=== PATIENT | male | born 1950 | race Caucasian/White ===

== ENCOUNTER → 2017-03-13 | Outpatient (CLI) | payer OTHER ==
[~2017-03-13] MED LIST: ASPI325T39 PO
[2017-03-13 14:52] LABS: BASO % 0.5 %; BASO ABS # 0.03 K/uL (0-0.2); COMPLETE YES; EOS % 1.5 %; HEMATOCRIT 41.4 % (42-52); IG% 0.3 %; LYMPH % 22.2 %; LYMPH ABS # 1.37 K/uL (1.2-3.4); MEAN CELL VOLUME 87.7 fL (80-100); MEAN CORPUSCULAR HEMOGLOBIN 30.3 pg (25-34); MEAN CORPUSCULAR HGB CONC 34.5 g/dl (32-36); MEAN PLATELET VOLUME 11.2 fL (7.4-10.4); MONO % 6.8 %; NEUT % 68.7 %; PLATELET COUNT 216 K/uL (130-400); RED BLOOD COUNT 4.72 M/uL (4.7-6.1); WHITE BLOOD COUNT 6.18 K/uL (4.8-10.8)
[2017-03-13 14:54] LABS: URINE APPEARANCE CLEAR (CLEAR); URINE BILIRUBIN NEG (NEG); URINE COLOR YELLOW; URINE EPITHELIAL CELL AUTO 0-5 /lpf (0-5); URINE NITRITE NEG (NEG); URINE SPECIFIC GRAVITY 1.023 (1.000-1.030); UROBILINOGEN NEG (NEG)
[2017-03-13 14:55] LABS: MANUAL MICROSCOPIC REQUIRED? NO; REVIEW REQ? NO
[2017-03-13 15:02] LABS: BLOOD UREA NITROGEN 20 mg/dl (7-18); BUN/CREATININE RATIO 16.8 (10-20); CARBON DIOXIDE 24 mmol/L (21-32); CHLORIDE 108 mmol/L (98-107); CREATININE 1.22 mg/dl (0.60-1.40); GLUCOSE 91 mg/dl (70-99); POTASSIUM 4.3 mmol/L (3.5-5.1); SODIUM 139 mmol/L (136-145)
== END | disposition home or self-care (01) ==
LOC: C.LAB 13:45
PROVIDERS: ATTEND Orthopaedic Surgery Orthopaedic Surgery of the Spine
DX: M48.061 Spinal stenosis, lumbar region without neurogenic claudication (principal)

== ENCOUNTER 2017-04-10 09:47 | Inpatient (IN) | payer OTHER ==
[2017-01-29 11:08] VITALS: BMI 28.0
--- NOTE | 2017-01-29 11:34 | PAT Medication Instructions ---
Service Date Jan 29, 2017. Current Home Medication List Aspirin (Aspirin Ec), 975 MG PO prn Medication Instructions For Your Scheduled Surgery - Hold the following medications 7-10 days prior to surgery per surgeon's instructions: Aspirin (Aspirin Ec), 975 MG PO prn If you have any questions please call us at [phone] or [phone] or [phone]
--- NOTE | 2017-01-29 12:11 | DIAGNOSTIC IMAGING REPORT ---
TWO VIEW CHEST CLINICAL HISTORY: Preoperative examination. FINDINGS: PA and lateral chest radiographs are obtained. No prior studies are available for comparison at the time of dictation. The cardiomediastinal silhouette is unremarkable. The lungs and pleural spaces are clear. There is no pneumothorax. The bony thorax appears intact. IMPRESSION: No active disease in the chest. Electronically signed by: Unruly Drake M.D. 01/29/2017 12:09 PM Dictated Date/Time: 01/29/2017 12:08 PM
[2017-01-29 12:20] LABS: BASO % 0.3 %; BASO ABS # 0.02 K/uL (0-0.2); COMPLETE YES; EOS % 0.8 %; HEMATOCRIT 41.1 % (42-52); IG% 0.5 %; LYMPH % 17.5 %; LYMPH ABS # 1.04 K/uL (1.2-3.4); MEAN CELL VOLUME 88.6 fL (80-100); MEAN CORPUSCULAR HEMOGLOBIN 31.7 pg (25-34); MEAN CORPUSCULAR HGB CONC 35.8 g/dl (32-36); MONO % 6.4 %; NEUT % 74.5 %; PLATELET COUNT 213 K/uL (130-400); RED BLOOD COUNT 4.64 M/uL (4.7-6.1); WHITE BLOOD COUNT 5.94 K/uL (4.8-10.8)
[2017-01-29 12:24] LABS: URINE APPEARANCE CLEAR (CLEAR); URINE BILIRUBIN NEG (NEG); URINE COLOR YELLOW; URINE NITRITE NEG (NEG); URINE SPECIFIC GRAVITY 1.018 (1.000-1.030); UROBILINOGEN NEG (NEG); ZZUR CULT IF INDIC CLEAN CATCH NO
[2017-01-29 12:39] LABS: MANUAL MICROSCOPIC REQUIRED? NO; REVIEW REQ? NO
[2017-01-29 12:52] LABS: BUN/CREATININE RATIO 16.9 (10-20); CALCIUM 9.4 mg/dl (8.5-10.1); POTASSIUM 4.6 mmol/L (3.5-5.1)
[~2017-04-10] VITALS: Ht 175.3 cm; Wt 88.1 kg
[2017-04-10] VITALS (8 sets, daily range): BP systolic 130–156; BP diastolic 71–91; PULSE 72–98; TEMP 36.4–36.7; O2SAT 92–98; Ht 175.3 cm; Wt 88.1 kg
[~2017-04-10 09:47] MED LIST changes: +CEFAZOLIN 2000 MG/60 ML D5W IV SCH; +CEFAZOLIN 2000MG IV PUSH 10 ML IV SCH; +LACTATED RINGER'S 1000ML 1,000 ML IV SCH
[2017-04-10] MEDS ORDERED: MIDAZOLAM HCL 1 MG/ML 2ML VIAL ONE (11:18)
[2017-04-10] MEDS ORDERED: FENTANYL CITRATE INJ 50 MCG/1 ML 2 ML VIAL ONE ×3 (11:18→13:33)
--- NOTE | 2017-04-10 11:26 | History & Physical Bridge Note ---
H&P Re-Evaluation Bridge Note: I have examined the patient, reviewed the History & Physical and in the interval since the performance of the History & Physical I have noted the following changes of clinical significance: No changes noted
--- NOTE | 2017-04-10 11:27 | History and Physical ---
History & Physical Date Apr 10, 2017. Chief Complaint Back and leg pain History of Present Illness The patient is a 66 year old male with complaints of back and leg pain Allergies Coded Allergies: No Known Allergies (Unverified , 04/10/17) Home Medications Scheduled Aspirin (Aspirin Ec), 975 MG PO prn Physical Examination Skin: warm/dry, no rash Eyes: normal inspection, EOMI, sclerae normal ENT: normal ENT inspection, pharynx normal Head: normocephalic, atraumatic Neck: supple, no adenopathy, trachea midline Respiratory/Chest: lungs clear, normal breath sounds, no respiratory distress Cardiovascular: regular rate, rhythm, no edema, no murmur Abdomen / GI: normal bowel sounds, non tender Back: normal inspection Extremities: normal inspection, normal range of motion Neurologic/Psych: no motor/sensory deficits, alert, normal reflexes, oriented x 3 Diagnosis Lumbar spinal stenosis Plan of Treatment L4 5 decompression and fusion with possible L5-S1
[2017-04-10] MEDS ORDERED: BUPIVACAINE/EPINEPHRINE 0.5% MPF 1:200,000 30 ML VIAL ONE (11:45)
[2017-04-10] MEDS ORDERED: BACITRACIN 50000 UNIT VIAL ONE (11:46)
[2017-04-10] MEDS ORDERED: HYDROmorphone INJ 2 MG/ML SYR/VIAL ONE ×2 (12:26→13:55)
[2017-04-10] MEDS ORDERED: FLOSEAL HEMOSTATIC MATRIX 10ML TOP ONE (13:48)
[2017-04-10] MEDS ORDERED: ONDANSETRON INJ 2 MG/ML 2 ML VIAL ONE (13:54)
[2017-04-10] MEDS ORDERED: LIDOCAINE HCL 2% 2 ML VIAL (20MG/ML) ONE (13:54)
[2017-04-10] MEDS ORDERED: ROCURONIUM BROMIDE 10 MG/ML 5 ML VIAL IV ONE (13:54)
[2017-04-10] MEDS ORDERED: PROPOFOL IV EMULSION 10 MG/ML 20 ML VIAL IV ONE (13:54)
[2017-04-10] MEDS ORDERED: EpHEDrine SULFATE 50MG/5ML SYR ONE (13:55)
[2017-04-10] MEDS ORDERED: SODIUM CHLORIDE 0.9% 1000ML 1,000 ML IV SCH (13:55)
[2017-04-10] MEDS ORDERED: GLYCOPYRROLATE INJ 0.2 MG/ML VIAL ONE (13:55)
[2017-04-10] MEDS ORDERED: NEOSTIGMINE METHYLSULFATE 1 MG/ML 10ML VIAL ONE (13:55)
[2017-04-10] MEDS ORDERED: KETOROLAC TROMETHAMINE 30 MG/ML VIAL ONE (13:55)
[2017-04-10] MEDS ORDERED: FAMOTIDINE 20 MG TAB PO PRN (14:00)
[2017-04-10] MEDS ORDERED: NALOXONE HCL 0.4 MG/1 ML VIAL/CARP IV PRN (14:00)
[2017-04-10] MEDS ORDERED: ONDANSETRON INJ 2 MG/ML 2 ML VIAL IV PRN ×2 (14:00→15:15)
[2017-04-10] MEDS ORDERED: BISACODYL 10 MG SUPP PR PRN (14:00)
[2017-04-10] MEDS ORDERED: SOD PHOSPHATE/SOD BIPHOSPHATE ENEMA 132 ML BTL PR PRN (14:00)
[2017-04-10] MEDS ORDERED: ACETAMINOPHEN IV 100 ML IV PRN (14:00)
[2017-04-10] MEDS ORDERED: MAGNESIUM HYDROXIDE SUSP 30 ML UDC PO PRN (14:00)
[2017-04-10] MEDS ORDERED: LORAZEPAM 0.5 MG TAB PO PRN (14:00)
[2017-04-10] MEDS ORDERED: DO NOT ADMINISTER FLU VACCINE PRN ×3 (14:00)
[2017-04-10] MEDS ORDERED: METOCLOPRAMIDE HCL INJ 5 MG/ML 2 ML VIAL IV PRN (14:00)
[2017-04-10] MEDS ORDERED: hydrOXYzine HCL 25 MG TAB PO PRN (14:00)
[2017-04-10] MEDS ORDERED: ACETAMINOPHEN 500 MG TAB PO PRN (14:00)
[2017-04-10] MEDS ORDERED: DO NOT ADMINISTER PNEUMOCOCCAL VACCINE PRN ×2 (14:00)
[2017-04-10] MEDS ORDERED: ALUMINUM/MAGNESIUM SUSP 30 ML UDC PO PRN (14:00)
[2017-04-10] MEDS ORDERED: LORAZEPAM INJ 0.5 MG in SYRINGE 0.75 ML IV PRN (14:00)
[2017-04-10] MEDS ORDERED: PROMETHAZINE HCL INJ 12.5 MG in SODIUM CHLORIDE 0.9% 50ML 50 ML IV PRN (14:00)
--- NOTE | 2017-04-10 14:01 | [facility] Operative Report ---
Operative Report Operative Date Apr 10, 2017. Pre-Operative Diagnosis Lumbar spinal stenosis Post-Operative Diagnosis Same Procedure(s) Performed #1 lumbar decompression medial facetectomies foraminotomies L4 5 L5-S1. #2 posterior spinal fusion L4 5 L5-S1. #3 placement of posterior segmental instrumentation L4 5 L5-S1. #4 interbody fusion L5-S1. #5 placement peek cage 9 x 26 mm at L5-S1. #6 placement locally harvested morcellized autograft in the posterior lateral gutters. #7 placement infuse collagen sponge, mask graft the posterior gutters and ostial amp in the interbody space. Surgeon Dr. Isabel Well Logging Captain Mud Analysis Surgeon(s) Joselito Chen PA-C Estimated Blood Loss 125ml Findings Lumbar spinal stenosis Specimens none per surgeon Description of Procedure Patient was met with preoperatively case discussed all questions addressed. After informed consent was obtained patient was taken operative suite underwent intubation placed in a prone position the Jadwin table top Adam frame. All bony prominences were well-padded eyes inspected to ensure there is no external pressure placed upon them. This point the lumbar spines prepped draped in normal sterile fashion. Sharp dissection with the assistance of Bovie cautery was performed onto an exposing the lamina and transverse processes of L4-L5 and sacral alar bilaterally. Caudal cephalad fashion complete laminectomy of L5 L4 was performed addressing severe lateral recess stenosis and foraminal disease. Pedicle screws are then placed in L4-L5 and S1 levels bilaterally with assistance of fluoroscopy the purposes carson placed. Through a transverse foraminal approach on the right a complete discectomy of L5 5 S1 was performed and plate could subcortical bleeding bone and a 9 x 26 mm peek cage filled with ostial amp tapped in position. Brought to then locked and final position bilaterally. The transverse processes of L4-L5 and the sacral alar burred to subcortical bleeding bone. Infuse calm sponge mask graft locally harvested morcellized autograft was placed in the posterior lateral gutters. 15 round CORIE drain was inserted. Incision was then closed with 1 Vicryl in the fascia 2-0 Vicryl subcutaneous tediously 4 Monocryl for final skin closure Steri-Strips sterile dressings placed. Patient we can take PACU stable condition. Please note Fran record was present at the entire procedure involved in patient positioning complex portions of the surgery and final skin closure. I attest to the content of the Intraoperative Record and any orders documented therein. Any exceptions are noted below.
--- NOTE | 2017-04-10 14:08 | DIAGNOSTIC IMAGING REPORT ---
LUMBAR SPINE, INTRAOPERATIVE FLUOROSCOPY HISTORY: L4 S1 decompression fusion. FLUOROSCOPY TIME: 18 seconds. FINDINGS: Intraoperative fluoroscopy was provided for the lumbar spine. 2 fluoroscopic spot images were obtained. Posterior decompression fusion at L4-S1 with pedicle screws and rods. The hardware appears intact. IMPRESSION: Fluoroscopy provided for a L4-S1 posterior decompression and fusion. Electronically signed by: Eddie Marshall M.D. 04/10/2017 2:06 PM Dictated Date/Time: 04/10/2017 2:06 PM
[2017-04-10] MEDS: HYDROmorphone HCL 0.5MG/ML 50 ML CASSETTE IV PRN ×3 (14:33→18:52)
--- NOTE | 2017-04-10 15:06 | Anesthesiology Progress Note ---
Anesthesia Post Op Note Date & Time Apr 10, 2017 at 15:06 Vital Signs Pain Intensity: 0 Vital Signs Past 12 Hours Date Time Temp Pulse Resp B/P (MAP) Pulse Ox O2 Delivery O2 Flow Rate FiO2 04/10/17 15:05 36.1 85 18 134/77 97 Nasal Cannula 4 04/10/17 14:55 36.1 85 18 125/79 96 Nasal Cannula 4 04/10/17 14:45 84 18 131/81 96 Nasal Cannula 4 04/10/17 14:35 85 18 130/82 96 Oxymask 10 04/10/17 14:25 93 20 139/83 98 Oxymask 10 04/10/17 14:18 36.3 93 14 144/88 98 Oxymask 10 04/10/17 10:13 36.4 72 18 156/91 97 Room Air Notes Mental Status: alert / awake / arousable, participated in evaluation Pt Amnestic to Procedure: Yes Nausea / Vomiting: adequately controlled Pain: adequately controlled Airway Patency, RR, SpO2: stable & adequate BP & HR: stable & adequate Hydration State: stable & adequate Anesthetic Complications: no major complications apparent
[2017-04-10] MEDS ORDERED: HYDROmorphone INJ 2 MG/ML SYR/VIAL IV PRN (15:15)
[2017-04-10] MEDS ORDERED: ATROPINE SULFATE 0.1 MG/ML 5ML SYR IV PRN (15:15)
[2017-04-10] MEDS: LACTATED RINGER'S 1000ML 1,000 ML IV SCH ×2 (15:30→18:57)
[2017-04-10] MEDS ORDERED: DEXAMETHASONE INJ 6 MG in SYRINGE 0 ML IV SCH (16:00)
[2017-04-10] MEDS: DOCUSATE SODIUM/SENNA 50/8.6MG TAB PO SCH (20:16)
[2017-04-10] MEDS: CEFAZOLIN IV 2,000 MG in SYRINGE 0 ML IV SCH (20:16)
[2017-04-10] MEDS: DEXAMETHASONE INJ 6 MG in SYRINGE 0 ML IV SCH (21:01)
[2017-04-11] MEDS: LACTATED RINGER'S 1000ML 1,000 ML IV SCH (01:15)
[2017-04-11 03:05] VITALS: BP 138/73; PULSE 90; TEMP 36.6; O2SAT 94
[2017-04-11] MEDS: CEFAZOLIN IV 2,000 MG in SYRINGE 0 ML IV SCH (03:16)
[2017-04-11] MEDS: DEXAMETHASONE INJ 6 MG in SYRINGE 0 ML IV SCH ×2 (03:21→12:43)
[2017-04-11] MEDS ORDERED: NURSING DECISION MEDICATION ORDER SCH (06:00)
[2017-04-11] MEDS ORDERED: HYDROmorphone INJ 0.5 MG/0.5 ML SYR IV PRN (06:00)
[2017-04-11] MEDS ORDERED: OXYCODONE HCL IR 5 MG TAB (IMMEDIATE RELEASE) PO PRN (06:00)
[2017-04-11] MEDS ORDERED: DC PCA ONE (06:00)
[2017-04-11] MEDS ORDERED: NALOXONE HCL 0.4 MG/1 ML VIAL/CARP IV PRN (06:00)
[2017-04-11 06:32] LABS: COMPLETE YES; HEMATOCRIT 35.4 % (42-52); IG% 0.3 %; LYMPH % 3.6 %; LYMPH ABS # 0.54 K/uL (1.2-3.4); MEAN CELL VOLUME 89.6 fL (80-100); MEAN CORPUSCULAR HEMOGLOBIN 30.6 pg (25-34); MEAN CORPUSCULAR HGB CONC 34.2 g/dl (32-36); MEAN PLATELET VOLUME 11.1 fL (7.4-10.4); MONO % 3.5 %; NEUT % 92.6 %; PLATELET COUNT 197 K/uL (130-400); RED BLOOD COUNT 3.95 M/uL (4.7-6.1); WHITE BLOOD COUNT 15.07 K/uL (4.8-10.8)
[2017-04-11 07:00] VITALS: BP 125/71; PULSE 76; TEMP 36.8; O2SAT 94
[2017-04-11 07:07] LABS: BUN/CREATININE RATIO 18.2 (10-20); CALCIUM 8.9 mg/dl (8.5-10.1); CREATININE 1.23 mg/dl (0.60-1.40); POTASSIUM 4.2 mmol/L (3.5-5.1)
[2017-04-11] MEDS ORDERED: RXC5 PO (09:35)
--- NOTE | 2017-04-11 09:35 | Discharge Instructions ---
Discharge Instructions Date of Service Apr 11, 2017. Admission Reason for Admission: Lumbar Spinal Stenosis Discharge Discharge Diagnosis / Problem: lumbar stenosis Discharge Goals Goal(s): Improve function Activity Recommendations Activity Limitations: per Instructions/Follow-up section . Instructions / Follow-Up Instructions / Follow-Up ACTIVITY RECOMMENDATIONS: SELF CARE INSTRUCTIONS AFTER THORACIC/LUMBAR FUSIONS 1. You may walk to your tolerance. It is good exercise for your legs and back. Expect some back and intermittent leg aches and pains. 2. You may perform "counter-top" level activities (make a sandwich, aubrey with a project, etc.). 3. No bending or lifting of more than 10 pounds or back twisting of any nature (roll like a log when turning in bed). 4. You may ride in a car for 20-30 minutes at a time. No driving until after your first visit with your doctor. 5. Frequent changes of position and restricting sitting to 30 minutes at a time will help limit the amount of back spasms and stiffness you may experience. 6. You may discontinue the use of ambulatory aids (cane, crutches, etc.) once your strength and confidence allow. 7. You may booking officer the shower and let water strike your incision when you arrive home at least once daily. Do not take a tub bath, sit in a hot tub or go into a swimming pool until after your first recheck in the office. SPECIAL CARE INSTRUCTIONS: VERY IMPORTANT TO READ AND REVIEW A. Your surgical incision has been closed with a cosmetic suture under the skin that will dissolve in about 6 weeks. In 14 days, you can use a pair of clean scissors and cut the suture that is left outside of the skin at the ends of your incision. 1. The small skin tapes can be removed 7 days after surgery if they have not fallen off by that point. 2. You may keep the wound open to air as much as possible to promote healing after post-op day number 5 unless told otherwise by your doctor. 3. If you think the wound looks like it is becoming infected (redness or worsening drainage) and/or you are experiencing fever, chill or worsening back pain and muscle spasms, contact the office so that we may evaluate you as soon as possible. B. Complications are uncommon, but please contact us if you have any signs or symptoms of: 1. wound infection (fever higher than 102.5 degrees F, redness, separation of wound, drainage, or increasing pain from the incision) 2. blood clots in legs (pain, swelling, redness and warmth in legs) 3. urinary tract infection (fever higher than 102.5 degrees F, burning upon urination or increased frequency of urination) 4. nerve problems (inability to walk on your toes or heels, numbness, loss of bowel or bladder control) 5. any other symptoms that concern you C. Please call the office at if you have any concerns or questions about your operation or recovery. D. No smoking! Smoking drastically decreases the chance of a solid fusion. E. Do not take any anti-inflammatory medications (Indocin, Advil, Motrin, Aspirin, Naprosyn, etc.) as these may inhibit the chance of a solid fusion. Tylenol is okay to take for pain. MANAGING PAIN AFTER SPINAL SURGERY 1. Narcotic medication is intended for short-term use and will be provided for surgical pain. Surgical pain usually lasts for a period of 4-6 weeks. Narcotic medication includes Percocet, Vicodin, Darvocet, Tylenol #3 or Lortab. 2. Longer-term pain is more appropriately treated with non-narcotic medication such as Tylenol ES. 3. Muscle spasm is not appropriately treated with narcotics. Muscle relaxers such as Soma, Flexeril or Skelaxin can be used along with Tylenol ES. 4. Remember that we all live with some "aches and pains". This is not unusual or uncommon after an injury or as we get older. a. Back pain is expected and may include muscle spasms for 4 to 6 weeks after surgery. The pain should gradually improve. If the pain worsens for no apparent reason, please contact the office. b. Intermittent leg pain may also be experienced and should not be concerned about unless it worsens for no apparent reason. If so, please contact the office. 5. We will provide appropriate medication within the normal guidelines of their prescribed use. We will also be very cautious and aware of potential abuse and extended duration of patients' medication needs. a. Pain medications are for your comfort and to assist with sleep and rest so that the tissue can heal. They are not provided in order to return to normal activity and should not be used through the day. To do so or worsening pain at night can result from ongoing tissue damage and development of tolerance to the prescribed medicine. 6. Please allow 2-3 days to process refills. Prescriptions will not be mailed but must be picked up at the office. FOLLOW UP VISIT: Keep your scheduled follow-up appointment. Any questions, please call the office at . Current Hospital Diet Patient's current hospital diet: Regular Diet Discharge Diet Recommended Diet: Regular Diet Procedures Procedures Performed: #1 lumbar decompression medial facetectomies foraminotomies L4 5 L5-S1. #2 posterior spinal fusion L4 5 L5-S1. #3 placement of posterior segmental instrumentation L4 5 L5-S1. #4 interbody fusion L5-S1. #5 placement peek cage 9 x 26 mm at L5-S1. #6 placement locally harvested morcellized autograft in the posterior lateral gutters. #7 placement infuse collagen sponge, mask graft the posterior gutters and ostial amp in the interbody space. Pending Studies Studies pending at discharge: no Medical Emergencies . Who to Call and When: Medical Emergencies: If at any time you feel your situation is an emergency, please call 911 immediately. . Non-Emergent Contact Non-Emergency issues call your: Primary Care Provider . "Provider Documentation" section prepared by Vick Isabel. . VTE Core Measure Inpt VTE Proph given/why not?: Nikki Higgins, SCD's
[2017-04-11] MEDS ORDERED: KETOROLAC TROMETHAMINE 15 MG/ML VIAL IV. PRN (09:45)
--- NOTE | 2017-04-11 09:56 | Progress Note ---
Progress Note Date of Service Apr 11, 2017. Progress Note Back pain is controlled inflating halls without difficulty. Denies any nausea vomiting or headache. On exam is stable bed as good strength testing. Assessment status post lumbar depression fusion replant this time continue with physical therapy as tolerated monitor is CORIE output anticipate possible home Thursday.
[2017-04-11 10:52] VITALS: BP 156/81; PULSE 79; TEMP 36.4; O2SAT 95
[2017-04-11 15:57] VITALS: BP 143/76; PULSE 82; TEMP 36.9; O2SAT 95
[2017-04-11] MEDS: DOCUSATE SODIUM/SENNA 50/8.6MG TAB PO SCH (20:28)
[2017-04-11 23:00] VITALS: BP 138/75; PULSE 75; TEMP 36.7; O2SAT 95
[2017-04-12] MEDS ORDERED: NURSING DECISION MEDICATION ORDER SCH ×2 (05:45→11:00)
[2017-04-12 06:00] VITALS: BP 116/70; PULSE 73; TEMP 36.4; O2SAT 96
[2017-04-12] MEDS ORDERED: POLYETHYLENE (MIRALAX) 17 GM PACK PO SCH (06:00)
--- NOTE | 2017-04-12 08:11 | DISCHARGE SUMMARY ---
ADMITTING DIAGNOSIS: Spinal stenosis. DISCHARGE DIAGNOSIS: Spinal stenosis. OPERATIONS: L4-L5, L5-S1 decompression and fusion. ATTENDING PHYSICIAN: Vick Isabel DO. HOSPITAL COURSE AND TREATMENT: Mr. Taylor is a pleasant individual with history and physical examination, radiographic images consistent with the above-mentioned diagnosis. For this reason, he was brought to the operating room and underwent the above-mentioned procedure. This was performed by Dr. Isabel under general anesthesia and left the operating room with a CORIE drain. He was seen by physical therapy postop day #1 for ambulation and gait training. Throughout his hospital course, his calves remained supple and nontender. Dressings remained clean, dry, and intact. On Thursday, postoperative day #2, the patient was quite comfortable, ambulating, able to go up and downstairs and was deemed safe for home discharge. His dressings and CORIE drain would be changed prior to discharge. He is to resume his prehospital medications. May utilize oxycodone for pain control. He is to avoid any full bending at the waist, lift anything heavier than 5-7 pounds. He should change his dressing once daily until it is dry. Once dry, he may begin showering. He will see us in the office in followup in approximately 2 weeks or sooner if he develops any fevers, chills, increased pain, or increased drainage.
[2017-04-12 09:08] VITALS: BP 116/70; PULSE 73; TEMP 36.4; O2SAT 96
[2017-04-12] MEDS ORDERED: COUGH DROP (SUGAR FREE) LOZ 24 LOZ/1 BOX ONE (10:55)
[2017-04-12] MEDS ORDERED: COUGH DROP (SUGAR FREE) LOZ 24 LOZ/1 BOX PO PRN (11:15)
== END 2017-04-12 13:58 | disposition home or self-care (01) | DRG 455 ==
LOC: C.ACU 09:47 → C.3E 11:45 → ENRESERV 14:59
PROVIDERS: ADMIT Orthopaedic Surgery Orthopaedic Surgery of the Spine; ATTEND Orthopaedic Surgery Orthopaedic Surgery of the Spine
PROC: 0SG30AJ Fusion of Lumbosacral Joint with Interbody Fusion Device, Posterior Approach, Anterior Column, Open Approach (ICD-10-PCS; principal; 2017-04-10 11:55)
PROC: 0SG3071 Fusion of Lumbosacral Joint with Autologous Tissue Substitute, Posterior Approach, Posterior Column, Open Approach (ICD-10-PCS; principal; 2017-04-10 11:55)
PROC: 0ST40ZZ Resection of Lumbosacral Disc, Open Approach (ICD-10-PCS; principal; 2017-04-10 11:55)
PROC: 0SG0071 Fusion of Lumbar Vertebral Joint with Autologous Tissue Substitute, Posterior Approach, Posterior Column, Open Approach (ICD-10-PCS; principal; 2017-04-10 11:55)
DX: M48.061 Spinal stenosis, lumbar region without neurogenic claudication (principal); Z79.82 Long term (current) use of aspirin